=== PATIENT | male | born 1955 | race Hispanic/Latino ===

== ENCOUNTER 2018-04-25 15:08 | Emergency (ER) | payer MEDICAID, OTHER ==
[2018-04-25 15:12] VITALS: BP 123/68; RESP 18; TEMP 98; BMI 37.5
--- NOTE | 2018-04-25 15:24 | ED PDOC ---
Arrival/HPI - History of Present Illness Narrative History of Present Illness (Text): 04/25/18 16:04 63M PMH venous insufficiency, DM2, Left BKA , presents to ED with a one week hx of painless swelling on the right leg. He visited his PMD Dr Andino the following day and was told to follow up with specialists and was given referrals. Pt did not yet go to any of the specialists. He has been sleeping on the couch without his foot raised and has noticed worsening of the swelling. His PMD recommended he raises the leg and has noticed improvement since then. He reports improvement since adhering to the advice. Pt reports not consistently taking his diuretic three times a day as prescribed. He is worried and doesn't want this leg to get amputated like his Left one, which prompted him to come in. ROS: Pos+ swelling in R Leg, dark skin on R Leg (chronic), Neg- trauma, loss of sensation, cold foot, open wounds, fevers, chills, night sweats, pain with foot ROM, cramping, weakness, long travel hx Time/Duration: 1 week Symptom Onset: Gradual Symptom Course: Improving Activities at Onset: Rest <Morgan Mcbride - Last Filed: 04/25/18 18:43> <Carmine Sheppard - Last Filed: 04/25/18 18:49> - General Chief Complaint: Lower Extremity Problem/Injury Time Seen by Provider: 04/25/18 15:14 Past Medical History - Provider Review Nursing Documentation Reviewed: Yes - Infectious Disease Hx of Infectious Diseases: MRSA - Tetanus Immunization Tetanus Immunization: Unknown - Cardiac Hx Cardiac Disorders: No - Pulmonary Hx Respiratory Disorders: No - Neurological Hx Neurological Disorder: No - HEENT Hx HEENT Disorder: Yes (WEARS RX GLASSES) - Renal Hx Renal Failure: Yes - Endocrine/Metabolic Hx Diabetes Mellitus Type 2: Yes Hx Hyperthyroidism: Yes - Hematological/Oncological Hx Blood Transfusions: (unknown) Hx Blood Transfusion Reaction: (unknown) - Musculoskeletal/Rheumatological Hx Arthritis: Yes Hx Degenerative Joint Disease: Yes Hx Falls: No Hx Unsteady Gait: Yes (CANE) - Gastrointestinal Hx Diverticulitis: Yes Hx Gastroesophageal Reflux: Yes Hx Liver Failure: Yes (WAS ON INTERFERON) - Genitourinary/Gynecological Hx Prostate Problems: Yes (LOW TESTOSTERONE LEVEL) - Psychiatric Hx Psychophysiologic Disorder: (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 A PROGRAM) Hx Depression: Yes Hx Emotional Abuse: No Hx Physical Abuse: No Hx Substance Use: Yes (H/O OF HEROINE AND COCAINE/PROGRAM IN [place] 80 MG METHADONE) - Past Surgical History Past Surgical History: No Previous - Anesthesia Hx Anesthesia Reactions: No Hx Malignant Hyperthermia: No - Suicidal Assessment Feels Threatened In Home Enviroment: No <Morgan Mcbride - Last Filed: 04/25/18 18:43> Family/Social History - Physician Review Nursing Documentation Reviewed: Yes Family/Social History: Unknown Family HX Smoking Status: Current Some Days Smoker Hx Alcohol Use: No Hx Substance Use: Yes (H/O OF HEROINE AND COCAINE/PROGRAM IN [place] 80 MG METHADONE) Hx Substance Use Treatment: No <Morgan Mcbride - Last Filed: 04/25/18 18:43> Allergies/Home Meds <Morgan Mcbride - Last Filed: 04/25/18 18:43> <Carmine Sheppard - Last Filed: 04/25/18 18:49> Allergies/Adverse Reactions: Allergies No Known Allergies Allergy (Verified 04/25/18 17:39) Home Medications: Home Meds Medication Instructions Recorded Confirmed Furosemide [Lasix] 40 mg PO DAILY 04/30/12 04/30/12 K Dur 10 meq PO DAILY 04/30/12 11/06/12 Methadone [Methadone HCl] 80 mg PO DAILY 04/30/12 11/06/12 Omeprazole [Prilosec] 20 mg PO DAILY 04/30/12 11/06/12 RX: Ammonium Lactate 12 TP DAILY 04/30/12 04/30/12 RX: Gabapentin 300 mg PO BID 04/30/12 04/30/12 RX: Ibuprofen 600 mg PO QID 04/30/12 11/06/12 Sertraline [Zoloft] 25 mg PO DAILY 04/30/12 11/06/12 Spironolactone [Aldactone] 50 mg PO DAILY 04/30/12 11/06/12 Testosterone [Androgel] 1 TP DAILY 04/30/12 11/06/12 Insulin Human Isophane (NPH)1 31 units SC BID 10/30/12 11/06/12 [Humulin 70/30 70 U/ml-30 U/ml 1.5 ml] Amoxicillin/Clavulanate [Augmentin 1 tab PO Q12 11/06/12 11/06/12 875 MG-125 MG] Review of Systems - Physician Review All systems were reviewed & negative as marked: Yes - Review of Systems Constitutional: absent: Fevers, Night Sweats Respiratory: absent: SOB, Cough Cardiovascular: Edema (resolving). absent: Chest Pain, Calf Pain Gastrointestinal: absent: Nausea Musculoskeletal: absent: Arthralgias, Myalgias Skin: Skin Lesions (chronic melanosis or RLE) Neurological: absent: Focal Weakness <Morgan Mcbride - Last Filed: 04/25/18 18:43> Physical Exam Vital Signs Reviewed: Yes Vital Signs Temp Pulse Resp BP Pulse Ox 04/25/18 15:10 98.0 F 72 18 123/68 98 Temperature: Afebrile Blood Pressure: Normal Pulse: Regular Respiratory Rate: Normal Appearance: Positive for: Well-Appearing, Non-Toxic, Comfortable Pain Distress: None Mental Status: Positive for: Alert and Oriented X 3 - Systems Exam Head: Present: Atraumatic, Normocephalic Pupils: Present: PERRL Extroacular Muscles: Present: EOMI. No: Gaze Palsy Conjunctiva: Present: Normal Mouth: Present: Moist Mucous Membranes Pharnyx: No: ERYTHEMA Respiratory/Chest: Present: Clear to Auscultation Cardiovascular: Present: Regular Rate and Rhythm, Normal S1, S2. No: Murmurs Abdomen: No: Distention Lower Extremity: Present: NORMAL PULSES, Cyanosis (and melanosis or RLE), Normal ROM. No: CALF TENDERNESS, Jarrell's Sign Neurological: Present: GCS=15, CN II-XII Intact Skin: Present: Warm, Dry, Normal Color Psychiatric: Present: Alert, Oriented x 3, Normal Insight (tibial and pedal palpated) <Morgan Mcbride - Last Filed: 04/25/18 18:43> Vital Signs Temp Pulse Resp BP Pulse Ox 04/25/18 15:10 98.0 F 72 18 123/68 98 <Carmine Sheppard - Last Filed: 04/25/18 18:49> Medical Decision Making ED Course and Treatment: 04/25/18 16:28 f/u venous doppler Re-evaluation Time: 18:23 (DVT neg on LE duplex) Reassessment Condition: Unchanged - RAD Interpretation Narrative RAD Interpretations (Text): 04/25/18 18:24 Lower extremity duplex neg as per Radiologist endorsement Mineral Industry Teacher: Radiologist <Morgan Mcbride - Last Filed: 04/25/18 18:43> ED Course and Treatment: 04/25/18 16:03 seen and examined with the resident. Our history and physical exam reveals a gentleman complaining of chronic right lower leg redness and swelling. He has chronic venous stasis changes of that leg. There is an amputation of the opposite leg. There is minimal edema. He has an excellent dorsalis pedis pulse. Some minimal edema. - RAD Interpretation Radiology Orders: 04/25/18 15:43 DUPLEX LOWER EXTRM VEIN RIGHT [US] Stat venous Doppler of the right lower extremity as read by the radiologist is negative for DVT. Mineral Industry Teacher: Lico <Carmine Sheppard - Last Filed: 04/25/18 18:49> Disposition/Present on Arrival - Present on Arrival Any Indicators Present on Arrival: No History of DVT/PE: No History of Uncontrolled Diabetes: Yes Urinary Catheter: No History Surgical Site Infection Following: None - Disposition Have Diagnosis and Disposition been Completed?: Yes Disposition Time: 18:31 Patient Plan: Discharge <Morgan Mcbride - Last Filed: 04/25/18 18:43> - Present on Arrival Any Indicators Present on Arrival: No History of DVT/PE: No History of Uncontrolled Diabetes: Yes Urinary Catheter: No History of Decub. Ulcer: No - Disposition Have Diagnosis and Disposition been Completed?: Yes Patient Plan: Discharge <Carmine Sheppard - Last Filed: 04/25/18 18:49> - Disposition Diagnosis: Chronic venous insufficiency Disposition: HOME/ ROUTINE Patient Problems: Current Active Problems Problem Status Onset Chronic venous insufficiency Acute Condition: GOOD Discharge Instructions (ExitCare): Varicose Veins and Other Vein Disease in the Legs, How to Prevent Blood Clots Additional Instructions: SHARLENE FIERRO, thank you for letting us take care of you today. Your provider ray Sheppard MD and you were treated for (R) LEG PAIN. The emergency medical care you received today was directed at your acute symptoms. If you were prescribed any medication, please fill it and take as directed. It may take several days for your symptoms to resolve. Return to the Emergency Department if your symptoms worsen, do not improve, or if you have any other problems. Please contact your primary doctor and follow up with them within 2 days of discharge. Bring any paperwork you were given at discharge with you along with any medications you are taking to your follow up visit. Our treatment cannot replace ongoing medical care by a primary care provider outside of the emergency department. Thank you for allowing the [facility] team to be part of your care today. If you had an X-Ray or CT scan: A Radiologist will review the ED reading if any change in treatment is needed we will contact you. If you had a blood, urine, or wound culture: It will take several days for the results, if any change in treatment is needed we will contact you. If you had an STI test: It will take 48 hours for the results. Please call after 1 week if you have not heard back. Forms: [employer] (Mongolian)
--- NOTE | 2018-04-25 18:57 | US ---
PROCEDURE: Right lower extremity venous US HISTORY: Leg pain and swelling. Evaluate for DVT. PHYSICIAN(S): Vitor Zhong M.D. TECHNIQUE: Duplex sonography and color-flow Doppler with graded compression were used to evaluate the deep venous system of the right lower extremity. FINDINGS: The visualized deep venous system of the right lower extremity is sonographically normal and compressible. Normal waveforms and augmentation are seen. There is no sonographic evidence for deep venous thrombosis in the visualized segments of the right lower extremity. IMPRESSION: 1. No sonographic evidence for deep venous thrombosis in the visualized segments of the right lower extremity.
[2018-04-25 22:17] VITALS: PULSE 90; O2SAT 99
== END 2018-04-25 22:17 | disposition home or self-care (01) ==
LOC: ED 15:08
DX: I87.2 Venous insufficiency (chronic) (peripheral) (principal); E11.9 Type 2 diabetes mellitus without complications; Z89.512 Acquired absence of left leg below knee